=== PATIENT | female | born 1945 | race Caucasian/White ===

== ENCOUNTER 2025-08-21 00:39 | Emergency (ER) | payer MEDICARE, SELFPAY ==
[2025-08-21] VITALS (12 sets, daily range): BP systolic 146–176; BP diastolic 61–79; PULSE 60–81; RESP 13–24; O2SAT 94–100; BMI 29.2
--- NOTE | 2025-08-21 01:13 | DI.RAD.S_ITS ---
PROCEDURE: XR CHEST 1V INDICATIONS: syncope, sweaty TECHNIQUE: One view of the chest was acquired. COMPARISON: None. FINDINGS: Surgical changes and devices: None. Lungs and pleura: Lungs are clear. No pleural effusions or pneumothorax. Mediastinum: Mediastinal contours appear normal. Heart size is normal. Bones and chest wall: No suspicious bony lesions. Overlying soft tissues appear unremarkable. IMPRESSION: No acute cardiopulmonary abnormality is seen. Dictated by: Jose Eduardo Soares M.D. on 08/21/2025 at 1:52 Approved by: Jose Eduardo Soares M.D. on 08/21/2025 at 1:52
--- NOTE | 2025-08-21 01:13 | DI.CT.S_ITS ---
PROCEDURE: CT HEAD/BRAIN WO CON INDICATIONS: syncope, sweaty TECHNIQUE: Noncontrast 4.5 mm thick angled axial sections acquired from the foramen magnum to the vertex, with coronal and sagittal reformats. For radiation dose reduction, the following was used: automated exposure control, adjustment of mA and/or kV according to patient size. COMPARISON: None. FINDINGS: Image quality: Diagnostic. CSF spaces: Basal cisterns are patent. No extra-axial fluid collections. The ventricles are symmetric in size and shape. Brain: No intracranial bleeds or mass effect. There is cerebral volume loss, with resultant ventricular and sulcal prominence. There are periventricular and deep white matter chronic small vessel ischemic changes. There is intracranial internal carotid artery atherosclerosis. Skull and face: Calvarium and visualized facial bones appear intact, without suspicious lesions. Sinuses: Visualized sinuses and mastoids are clear. IMPRESSION: No acute intracranial pathology. Dictated by: Jose Eduardo Soares M.D. on 08/21/2025 at 1:53 Approved by: Jose Eduardo Soares M.D. on 08/21/2025 at 1:55
--- NOTE | 2025-08-21 01:13 | EKG_ITS ---
[address] [address] Test Date: 2025-08-21 Pat Name: Faiza Marti Department: Room: Gender: Female Office Support Clerk: KATHLEEN MITCH : 1945 Requested By: Order Number: [id number] Reading MD: Alessandro Romero MD Measurements Intervals [place] Rate: 65 P: 55 RI: 152 QRS: -3 QRSD: 78 T: 32 QT: 450 QTc: 468 Interpretive Statements Normal sinus rhythm Inferior infarct , age undetermined Electronically Signed On 08-21-2025 7:20:49 PDT by Alessandro Romero MD
--- NOTE | 2025-08-21 01:14 | ED_ITS ---
HPI - Syncope General Chief Complaint: Syncope Stated Complaint: Poss Stroke, syncope, N Time Seen by Provider: 08/21/25 01:13 Source: patient and family Mode of arrival: Wheelchair Limitations: no limitations History of Present Illness HPI narrative: 80-year-old female history of hypothyroidism, Conns syndrome (hyperaldosteronism), allergies who presents with complaint of syncopal episode. Patient states she woke up had a cramp in her right lower extremity which she does get intermittently. States she got up to put some Biofreeze on it and then started to feel unwell and has a loss of consciousness for about a minute. Was witnessed by her has been who was already awake. He states patient has sort of leaned backwards eyes rolled back did not respond was not shaking and then returned to consciousness and was back to her normal very quickly. She has been sweaty since then. States it has happened about an hour ago. She denies headache no neck pain, no chest pain, no new back pain. Denies any abdominal pain. She would have some nausea and vomiting. Denies any loss of bowel or bladder control. Denies any dysuria urgency or frequency. No diarrhea or constipation. Denies any new swelling redness or other changes to her lower extremities. States she has had a prior syncopal episode once before. States she takes medication for hypothyroid, spironolactone for con syndrome and at daily anti allergy medication. States allergies to NSAIDs. No tobacco, alcohol or recreational drugs. Primary care is Dr. Marty Lopez. Related Data Allergies Allergy/AdvReac Type Severity Reaction Status Date / Time ciprofloxacin (From Cipro) Allergy Verified 08/21/25 01:30 NSAIDS (Non-Steroidal Allergy Verified 08/21/25 01:30 Anti-Inflamma Sulfa (Sulfonamide Allergy Verified 08/21/25 01:30 Antibiotics) Review of Systems Review of Systems ROS Unobtainable: All systems reviewed & are unremarkable except as noted in HPI and below Patient History Social History Smoking Status: Never smoker Smoking Status: Never smoker Exam Narrative Exam Narrative: GEN: Elderly appearing female, alert and oriented x 3, patient appears to be in mild distress. Patient is mildly diaphoretic HEENT: Atraumatic, pupils are equal round reactive to light, extraocular movements are intact, nares are clear, there is no conjunctival pallor. Throat is clear without any exudates, erythema, tonsillar enlargement or uvular deviation HEART: Regular rate and rhythm without murmur, clicks, rubs. Pulses are equal in upper and lower extremities. No edema bilateral lower extremities. LUNGS:Lungs clear to auscultation, no wheezes, rales, crackles, chest moves symmetrically, no tachypnea accessory muscle use. No difficulty with speech ABD:bowel sounds normal, soft, non-tender, no guarding, rebound, rigidity, no masses noted, no hepatosplenomegaly :No CVA tenderness MSCL: Non-tender, no muscle atrophy, muscles strength 5/5 upper and lower extremities, full range of motion. NEURO:CN 2-12 intact, sensation normal. Initial Vital Signs Initial Vital Signs: Vital Signs Pulse Rate 64 08/21/25 01:05 Respiratory Rate 18 08/21/25 01:05 Blood Pressure 170/73 H 08/21/25 01:05 Pulse Oximetry 100 08/21/25 01:05 Oxygen Delivery Method Room Air 08/21/25 01:05 Course Orders Ordered: ED Orders 08/21/25 01:13 CT head/brain wo con Stat XR chest 1V Stat EKG-12 Lead Stat 08/21/25 01:32 Complete Blood Count AUTO DIFF Stat Comprehensive Metabolic Panel Stat Lipase Stat Magnesium Stat NT-proBNP (BNP-Adult 18+) Stat Troponin I Stat 08/21/25 03:40 Trop I [Troponin I] Stat Discontinued Medications Sodium Chloride (Normal Saline 0.9%) 1,000 mls @ 999 mls/hr IV BOLUS ONE Stop: 08/21/25 02:13 Last Infusion: 08/21/25 02:56 Dose: Infused Documented By: Admin: 08/21/25 01:40 Dose: 999 mls/hr Documented By: RAMANA Ondansetron HCl (Ondansetron 4 Mg/2 Ml Inj) 4 mg IV NOW ONE Stop: 08/21/25 01:59 Last Admin: 08/21/25 02:00 Dose: 4 mg Documented By: RAMANA Ondansetron HCl (Ondansetron 4 Mg Odt Prepack) 1 bottle MISC DIRECTED ONE Stop: 08/21/25 05:02 Last Admin: 08/21/25 05:06 Dose: 1 bottle Documented By: RAMANA Vital Signs Vital signs: Vital Signs - 8 hr 08/21/25 01:05 08/21/25 01:19 08/21/25 01:19 Pulse Rate 64 63 Respiratory Rate 18 Blood Pressure 170/73 H 176/79 H Pulse Oximetry 100 94 Oxygen Delivery Method Room Air Room Air 08/21/25 01:30 08/21/25 01:31 08/21/25 01:31 Pulse Rate 60 61 Respiratory Rate 16 18 Blood Pressure 174/74 H Pulse Oximetry 98 99 Oxygen Delivery Method Room Air Room Air 08/21/25 02:00 08/21/25 02:04 08/21/25 02:04 Pulse Rate 68 66 Respiratory Rate 24 14 Blood Pressure 172/75 H Pulse Oximetry 97 97 Oxygen Delivery Method Room Air Room Air 08/21/25 02:30 08/21/25 02:30 08/21/25 03:00 Pulse Rate 71 72 Respiratory Rate 16 16 Blood Pressure 173/70 H Pulse Oximetry 96 98 Oxygen Delivery Method Room Air Room Air 08/21/25 03:00 08/21/25 03:30 08/21/25 03:30 Pulse Rate 73 Respiratory Rate 15 Blood Pressure 168/70 H 164/69 H Pulse Oximetry 96 Oxygen Delivery Method Room Air 08/21/25 04:00 08/21/25 04:00 08/21/25 04:30 Pulse Rate 73 72 Respiratory Rate 17 15 Blood Pressure 146/65 H Pulse Oximetry 96 98 Oxygen Delivery Method Room Air Room Air 08/21/25 04:30 08/21/25 05:00 08/21/25 05:00 Pulse Rate 81 Respiratory Rate 13 Blood Pressure 152/61 H 147/62 H Pulse Oximetry 98 Oxygen Delivery Method Room Air MDM - Syncope Lab Data 08/21/25 01:32 08/21/25 01:32 Labs: Lab Results 08/21/25 08/21/25 08/21/25 Range/Units 01:21 01:32 03:40 WBC 5.8 (4.5-11.0) X10^3/uL RBC 4.66 (4.0-5.2) X10^6/uL Hgb 13.9 (12.0-16.0) g/dL Hct 40.4 (36-46) % MCV 86.8 (80-100) fL MCH 29.7 (26-34) PG MCHC 34.3 (30-36) % RDW 13.0 (11.6-14.8) % Plt Count 253 (150-400) X10^3/uL Neut % (Auto) 44.7 L (50-75) % Lymph % (Auto) 43.3 H (25-40) % Humphre[place] % (Auto) 8.7 (3-14) % Eos % (Auto) 2.2 (2-4) % Baso % (Auto) 1.1 (0-2) % Neut # (Auto) 2600 (4716-0974) /uL Lymph # (Auto) 2500 (1287-9628) /uL [place] # (Auto) 500 (0-900) /uL Eos # (Auto) 100 (0-450) /uL Baso # (Auto) 100 (0-100) /uL Sodium 136 L (137-145) mmol/L Potassium 3.7 (3.4-5.1) mmol/L Chloride 101 (98-107) mmol/L Carbon Dioxide 25 (22-32) mmol/L BUN 17 (7-17) mg/dL Creatinine 0.84 (0.52-1.04) mg/dL Estimated GFR > 60 (>60) mL/min BUN/Creatinine Ratio 20.2 (6-22) Glucose 128 H (70-99) mg/dL POC Whole Bld Glucose 121 H (70-99) mg/dL Calcium 9.1 (8.4-10.2) mg/dL Magnesium 1.8 (1.6-2.3) mg/dL Total Bilirubin 0.5 (0.2-1.3) mg/dL AST 27 (14-36) IU/L ALT 16 (<35) IU/L Alkaline Phosphatase 86 (38-126) U/L Troponin I < 0.012 < 0.012 (0.01-0.034) ng/mL NT-Pro-B Natriuret Pep 86 (<450) pg/mL Total Protein 7.2 (6.3-8.2) g/dL Albumin 4.4 (3.5-5.0) g/dL Globulin 2.8 (1.7-4.1) g/dL Albumin/Globulin Ratio 1.6 (1.0-2.8) Lipase 67 (23-300) U/L Point of Care Testing Glucose POC 121 Urine Dip Bedside Urine Glucose Negative Bedside Urine Bilirubin - Negative Bedside Urine Ketone - Negative Urine Specific [place] 1.015 Bedside Urine Occult Blood - Negative Bedside Urine pH 6.0 Bedside Urine Protein - Negative Bedside Urine Urobilinogen - Negative Bedside Urine Nitrite - Negative Bedside Urine Leukocytes - Negative Esterase ECG Data Attestation: I personally reviewed and interpreted this ECG as follows: Prior ECG tracings: not available for review Interpretation: Sinus rhythm rate of 65, [place] 152 QRS is 78 QTC of 468, T-waves inverted in V1 V2 no elevation appreciated. Q-wave in 3 and AVF MDM Narrative Medical decision making narrative: Labs shows normal white count, hemoglobin and platelets, predominance of lymphocytes. Sodium is 136 electrolytes BUN and creatinine are normal glucose is 128 LFTs are normal troponins less than 0.012 with a BNP of 86. Lipase is 67. Chest Xray is normal Head CT shows no acute change EKG sinus rhythm rate of 65. Urine is negative Point of care glucose is 121. Patient received fluids and zofran. Patient had 1 episode of emesis right after CT did not have any additional. She is feeling improved but still nauseated. We did discuss obtaining COVID/influenza/RSV testing but she defers. She is feeling somewhat improved overall she is nontender on exam does not have any abdominal pain she notes that after shingles shot she had a very similar reaction before she did have her flu shot but that was a week ago discussed less likely to be her source a week out from her immunization. Patient has been feel comfortable discharging home but discussed return precautions. Discharge Plan Departure Patient Disposition: Home Clinical Impression: Syncope, Nausea Instructions: DI for Syncope in Adults (Fainting) Activity Restrictions/Additional Instructions: Follow up for rechecked in the next 24 hours if you are not having any improvement. You can take Zofran 1 tablet every 6 hours as needed for nausea. Please return if you have recurrent symptoms, severe headaches, lightheadedness or passing out, vomiting, new chest pain or shortness of breath, new swelling of extremities or other new or concerning symptoms. Stand Alone Forms: Patient Portal/API
--- NOTE | 2025-08-21 01:34 | PC.NURSE ---
To imaging via ED stretcher with automation control technician
[2025-08-21 01:39] LABS: Add Manual Diff / Slide Review NO; Hematocrit 40.4 % (36-46); Hemoglobin 13.9 g/dL (12.0-16.0); Lymphocytes Absolute Auto 2500 /uL (1100-4500); Mean Corpuscular HGB Conc 34.3 % (30-36); Mean Corpuscular Hemoglobin 29.7 PG (26-34); Mean Corpuscular Volume 86.8 fL (80-100); Platelet Count 253 X10^3/uL (150-400)
[2025-08-21] MEDS: SODIUM CHLORIDE 0.9% 1,000 ML 999 ML IV (01:40)
[2025-08-21 01:53] LABS: Alanine Aminotransferase 16 IU/L (<35); Albumin 4.4 g/dL (3.5-5.0); Albumin Globulin Ratio 1.6 (1.0-2.8); Alkaline Phosphatase 86 U/L (38-126); Blood Urea Nitrogen 17 mg/dL (7-17); Calcium 9.1 mg/dL (8.4-10.2); Carbon Dioxide 25 mmol/L (22-32); Chloride 101 mmol/L (98-107); Estimated Glomerular Filt Rate > 60 mL/min (>60); Globulin 2.8 g/dL (1.7-4.1); Glucose 128 mg/dL (70-99); HEMOLYSIS < 15 (0-50); Lipase 67 U/L (23-300); Magnesium 1.8 mg/dL (1.6-2.3); Potassium 3.7 mmol/L (3.4-5.1); Sodium 136 mmol/L (137-145); Total Protein 7.2 g/dL (6.3-8.2)
[2025-08-21] MEDS: ONDANSETRON 4 MG/2 ML INJ IV (02:00)
[2025-08-21 02:03] LABS: NT-proBNP (BNP-Adult 18+) 86 pg/mL (<450); Troponin I < 0.012 ng/mL (0.01-0.034)
--- NOTE | 2025-08-21 03:44 | EKG_ITS ---
[address] [address] Test Date: 2025-08-21 Pat Name: Faiza Marti Department: Room: Gender: Female [employer] Marker: KATHLEEN MITCH : 1945 Requested By: Order Number: [id number] Reading MD: Alessandro Romero MD Measurements Intervals [place] Rate: 73 P: 46 OR: 164 QRS: -9 QRSD: 82 T: 11 QT: 418 QTc: 460 Interpretive Statements Normal sinus rhythm Inferior infarct , age undetermined Possible Anterior infarct , age undetermined NO SIGNIFICANT CHANGE FROM PRIOR TRACING Electronically Signed On 08-21-2025 16:06:57 PDT by Alessandro Romero MD
--- NOTE | 2025-08-21 03:44 | PC.NURSE ---
Pt resting quietly with eyes closed, resps even and not labored. No distress noted at this time. Pt rouses easily to verbal stimuli and engages with RN appropriately. Pt denies any pain but states still very nauseous. Louis Posey made aware. Continued plan of care discussed. Repeat troponin drawn and EKG completed at this time. Pt remains connected to cardiac, blood pressure, pulse ox, and resp monitors with alarms on and audible. VS stable at this time. Call light within reach. remains at bedside.
--- NOTE | 2025-08-21 04:01 | PC.NURSE ---
Pt assisted to bedside commode. Urine sample collected at this time. Placed back in ED stretcher; cardiac, resp, blood pressure, and pulse ox monitors with alarms on and audible. VS stable at this time. Continued plan of care discussed. Wrapped in warm blankets for patient comfort. Call light within reach. remains at bedside.
[2025-08-21 04:25] LABS: Troponin I < 0.012 ng/mL (0.01-0.034)
[2025-08-21] MEDS: ONDANSETRON 4 MG ODT PREPACK 1 BOTTLE MISC (05:06)
--- NOTE | 2025-08-21 05:12 | PC.NURSE ---
Ambulatory around department without difficulty or assistance with 1 person stand by.
== END 2025-08-21 05:14 | disposition home or self-care (01) ==
PROVIDERS: Emergency Provider Emergency Medicine
DX: R55 Syncope and collapse (principal); R11.0 Nausea
CPT/HCPCS: 36415; 70450; 71045; 80053; 81003; 82962; 83690; 83735; 83880; 84484; 85025; 93005; 96361; 96374; 99284; J2405; J7030

== ENCOUNTER → 2025-10-30 08:06 | Outpatient (CLI) | payer MEDICARE, SELFPAY ==
[2025-10-30 09:44] LABS: Influenza A - CEPHEID Flu A NEGATIVE (NEGATIVE); Influenza B - CEPHEID Flu B NEGATIVE (NEGATIVE)
[2025-10-30 09:45] LABS: COVID-19 CEPHEID 4-PLEX PCR Negative (Negative)
== END ==
PROVIDERS: Visit Provider Chiropractor
DX: R05.1 Acute cough (principal)
CPT/HCPCS: 87637